=== PATIENT | female | born 1990 | race Caucasian/White ===

== ENCOUNTER 2020-09-10 16:03 | Emergency (ER) | payer MEDICAID ==
[~2020-09-10] VITALS: Ht 175.3 cm; Wt 73.4 kg
--- NOTE | 2020-09-10 16:53 | NUR ---
PT TO ROOM FROM LOBBY.
[2020-09-10 18:40] VITALS: BP 122/79
[2020-09-10 18:41] LABS: CLUE CELLS NONE SEEN (NONE SEEN); WET PREP WBCS MANY (FEW)
[2020-09-10] MEDS ORDERED: metroNIDAZOLE 500 MG TABLET PO ONE (19:00)
[2020-09-10] MEDS ORDERED: metroNIDAZOLE 500 MG TABLET ONE (19:01)
== END 2020-09-10 19:13 | disposition home or self-care (01) ==
LOC: ED 16:58
DX: L03.114 Cellulitis of left upper limb (principal); L03.113 Cellulitis of right upper limb; A59.01 Trichomonal vulvovaginitis; F15.20 Other stimulant dependence, uncomplicated; F17.210 Nicotine dependence, cigarettes, uncomplicated
CPT/HCPCS: 87210; 87491; 87591; 87808; 99406

== ENCOUNTER 2020-12-23 07:19 | Emergency (ER) | payer MEDICAID ==
[~2020-12-23] VITALS: Ht 175.3 cm; Wt 73.8 kg
--- NOTE | 2020-12-23 07:26 | NUR ---
CALLED FOR TRIAGE, NO ANSWER.
[2020-12-23 07:41] VITALS: BP 115/76
[2020-12-23] MEDS ORDERED: NEOSPORIN OINT. PKT 1 PACKET ONE (07:54)
--- NOTE | 2020-12-23 08:00 | NUR ---
PT PROVIDED WOUND CARE SUPPLIES UPON DISCHARGE
== END 2020-12-23 08:02 | disposition home or self-care (01) ==
LOC: ED 07:30
DX: L03.317 Cellulitis of buttock (principal); L03.114 Cellulitis of left upper limb; L03.113 Cellulitis of right upper limb; L03.115 Cellulitis of right lower limb; B34.9 Viral infection, unspecified
CPT/HCPCS: 99283